=== PATIENT | male | born 2005 | race Caucasian/White ===

== ENCOUNTER 2024-07-13 06:25 | Day surgery (SDC) | payer BC, OTHER ==
[2024-07-13] MEDS: Lactated Ringers 1,000 ML IV SCH (06:55)
[2024-07-13] MEDS ORDERED: Propofol 200 MG/20 ML SDV ONE (07:16)
[2024-07-13] MEDS ORDERED: fentaNYL 100 MCG/2 ML SDV ONE ×2 (07:16→08:12)
[2024-07-13] MEDS ORDERED: dexmedeTOMIDine HCl 200 MCG/2 ML SDV ONE (07:18)
[2024-07-13] MEDS ORDERED: Water For Injection, Sterile 20 ML ONE (07:18)
[2024-07-13] MEDS ORDERED: Lidocaine 1% 20 ML MDV ONE (07:25)
[2024-07-13] MEDS ORDERED: Bupivacaine 0.5% 30 ML SDV ONE (07:25)
[2024-07-13] MEDS ORDERED: Ondansetron 4 MG/2 ML SDV ONE (07:57)
[2024-07-13] MEDS ORDERED: Dexamethasone 4 MG/ML 5 ML MDV ONE (07:57)
[2024-07-13] MEDS ORDERED: Ketorolac 30 MG/ML SDV ONE (08:20)
[2024-07-13] MEDS ORDERED: Naloxone 0.4 MG/ML SDV IVPUSH PRN (08:27)
[2024-07-13] MEDS ORDERED: Morphine 2 MG/ML SYRINGE IVPUSH PRN (08:27)
[2024-07-13] MEDS ORDERED: fentaNYL 50 MCG/ML SDV IVPUSH PRN (08:27)
[2024-07-13] MEDS ORDERED: droPERidol 5 MG/2 ML SDV IVPUSH PRN (08:27)
[2024-07-13] MEDS ORDERED: Albuterol 0.083% 2.5 MG/3 ML Neb Soln NEB PRN (08:27)
[2024-07-13] MEDS ORDERED: Ondansetron 4 MG/2 ML SDV IVPUSH PRN (08:27)
[2024-07-13] MEDS ORDERED: Phenylephrine HCl In 0.9% NaCl 1 MG/10 ML Syringe IVPUSH PRN (08:27)
[2024-07-13] MEDS ORDERED: Metoclopramide 10 MG/2 ML SDV IVPUSH PRN (08:27)
[2024-07-13] MEDS ORDERED: HYDROmorphone 1 MG/ML Syringe IVPUSH PRN (08:27)
[2024-07-13] MEDS ORDERED: Acetaminophen/HYDROcodone 325-5 MG Tab PO PRN (08:52)
[2024-07-13] MEDS ORDERED: Lactated Ringers 1,000 ML IV SCH (09:00)
== END 2024-07-13 09:58 | disposition home or self-care (01) ==
LOC: MW.SDS 06:25
PROVIDERS: ATTEND Surgery
DX: L72.0 Epidermal cyst (principal); L02.412 Cutaneous abscess of left axilla; F17.290 Nicotine dependence, other tobacco product, uncomplicated; Z91.09 Other allergy status, other than to drugs and biological substances
CPT/HCPCS: 11402; J0665; J1100; J1885; J2704; J3010; J7120; 00400; J2405; J3490